=== PATIENT | female | born 1995 | race Caucasian/White ===

== ENCOUNTER 2019-08-01 11:51 | Emergency (ER) | payer MEDICAID ==
[~2019-08-01] VITALS: Ht 154.9 cm; Wt 53.1 kg
[2019-08-01 12:06] VITALS: BP 115/61
== END 2019-08-01 12:38 | disposition home or self-care (01) ==
LOC: ER 11:51
DX: M25.512 Pain in left shoulder (principal); Z88.5 Allergy status to narcotic agent; W20.8XXA Other cause of strike by thrown, projected or falling object, initial encounter; Y93.89 Activity, other specified; Y92.89 Other specified places as the place of occurrence of the external cause; Y99.8 Other external cause status

== ENCOUNTER 2024-12-28 17:47 | Emergency (ER) | payer MEDICAID ==
[~2024-12-28] VITALS: Ht 157.5 cm; Wt 56.7 kg
[2024-12-28 18:13] VITALS: BP 126/77; TEMP 99; O2SAT 98
== END 2024-12-28 20:05 | disposition left against medical advice (07) ==
LOC: ER 18:16
DX: A05.9 Bacterial foodborne intoxication, unspecified (principal); R42 Dizziness and giddiness; Z53.21 Procedure and treatment not carried out due to patient leaving prior to being seen by health care provider